=== PATIENT | male | born 1970 | race American Indian/Alaskan Native ===

== ENCOUNTER → 2024-09-25 | Outpatient (BNVA) | payer MEDICARE, MEDICAID, SELFPAY | END | disposition home or self-care (01) | PROVIDERS: PCP Internal Medicine; Referring Provider Internal Medicine; Visit Provider Urology | DX: N40.1 Benign prostatic hyperplasia with lower urinary tract symptoms (principal); N13.8 Other obstructive and reflux uropathy; Z80.42 Family history of malignant neoplasm of prostate; I10 Essential (primary) hypertension; E78.5 Hyperlipidemia, unspecified; I25.10 Atherosclerotic heart disease of native coronary artery without angina pectoris; E66.9 Obesity, unspecified; Z68.41 Body mass index [BMI] 40.0-44.9, adult | CPT/HCPCS: 81003; 99212; G0463 ==

== ENCOUNTER 2024-10-17 09:36 | Emergency (ER) | payer MEDICAID, SELFPAY ==
[2024-10-17 09:37] VITALS: BMI 40.3
[2024-10-17 10:42] VITALS: BP 132/75; PULSE 78; RESP 19; TEMP 36.8; O2SAT 96
--- NOTE | 2024-10-17 10:55 | XR_ITS ---
Examination: CT brain head without contrast. 2-D sagittal coronal reconstructions Date and time of exam:October 17, 2024 1148 hours INDICATIONS: Onset dizziness episodes beginning 2 days ago COMPARISON: September 15, 2020 CTDI: vol (mGy):55.5 DLP: (mGycm):1129 Technique: Multiple CT axial sections of the brain have been obtained, 5 mm slice thickness. Contrast has not been administered. 2-D sagittal, coronal reconstructions have been obtained Low dose protocols were performed. One or more of the following dose reduction techniques were used; automated exposure control, adjustment of the mA and/or KV according to patient size, use of iterative reconstruction technique. Findings: No significant ventricular enlargement. Intra-axial or extra-axial hemorrhage density is not seen. No mass effect or midline shift Basal cisterns are not remarkable. Fourth ventricle is midline. Cranial vault intact. Impression: Negative for acute hemorrhage, mass effect or midline shift If symptoms persist, consider brain MRI follow-up, stroke protocol
--- NOTE | 2024-10-17 10:55 | XR_ITS ---
Examination: PA chest single view TECHNIQUE: Upright PA chest single view Exam date and time: October 17, 2024 1059 hours INDICATIONS: Dizziness chest pain beginning 2 days ago. FINDINGS: Mild opacity at the right lower lung zone Normal heart size No pulmonary edema Lower cervical artificial discs IMPRESSION: Suspicious for early pneumonia in the right lower lung zones
--- NOTE | 2024-10-17 10:55 | PD.EDRME ---
Rapid Medical Screening Exam RME Arrival date/time: 10/17/24 09:36 This is a 53-year-old male who presents to the emergency department with complaints of acute dizziness shakiness for 2 days. History of hypertension, A-fib hypothyroidism. I have greeted and performed a focused initial assessment of this patient. Initial appropriate labs ordered at this time. A comprehensive ED assessment and evaluation of the patient and analysis of all test and completion of medical decision making process will be conducted by additional ED provider. Chief Complaint: Dizziness Time Seen by Provider: 10/17/24 09:49 Vital signs: Vital Signs Temperature 98.2 F 10/17/24 10:42 Pulse Rate 78 10/17/24 10:42 Respiratory Rate 19 10/17/24 10:42 Blood Pressure 132/75 H 10/17/24 10:42 Pulse Oximetry (%) 96 10/17/24 10:42 Oxygen Delivery Method Room Air 10/17/24 10:42
[2024-10-17 11:31] LABS: Basophils % (Auto) 0 % (0-2.5); Eosinophils # (Auto) 0.1 Thou/mm3 (0.0-0.5); Eosinophils % (Auto) 1 % (0-10); Hematocrit 44.2 % (41.0-53.0); Hemoglobin 15.4 g/dL (13.5-16.0); Immature Granulocytes % (Auto) 1 % (0-0); Immature Granulocytes Auto 0.04 Thou/mm3 (0.00-0.00); Lymphocytes # (Auto) 1.3 Thou/mm3 (1.0-4.8); Lymphocytes % (Auto) 18 % (10-50); Mean Corpuscular HGB Conc 34.8 g/dl (31.0-37.0); Mean Corpuscular Volume 92 fL (80-100); Monocytes # (Auto) 0.7 Thou/mm3 (0.0-0.8); Monocytes % (Auto) 10 % (0-12); Neutrophils # (Auto) 4.8 Thou/mm3 (1.8-7.7); Neutrophils % (Auto) 69 % (37-80); Nucleated Red Blood Cell % 0 /100 WBC (0); Platelet Count 274 Thou/mm3 (140-440); RDW Standard Deviation 42.4 fL (35.1-43.9); Red Blood Count 4.81 Miln/mm3 (4.50-5.90); White Blood Count 6.9 Thou/mm3 (3.8-10.6)
[2024-10-17 11:46] LABS: INR 0.9 (0.9-1.3); Partial Thromboplastin Time 26.7 Seconds (22.0-36.0); Prothrombin Time 10.3 Seconds (9.0-12.2)
[2024-10-17 11:54] LABS: Alanine Aminotransferase 89 U/L (10-49); Albumin, Serum 4.5 gm/dL (3.5-5.0); Albumin/Globulin Ratio 1.9 (1.2-2.2); Alkaline Phosphatase 92 U/L (46-116); Anion Gap 6 (7-16); Aspartate Amino Transferase 42 U/L (0-34); BUN/Creatinine Ratio 12 Ratio (12-20); Bilirubin,Total 0.5 mg/dL (0.3-1.2); Blood Urea Nitrogen 13 mg/dL (9-23); Calcium 9.2 mg/dL (8.3-10.6); Calcium (Corrected) 9.2 mg/dL (8.5-10.1); Carbon Dioxide 29.8 mMol/L (20.0-31.0); Chloride 100 mMol/L (98-107); Creatinine (Component) 1.1 mg/dL (0.6-1.3); Estimated Creatinine Clearance 89.8 mL/min (>60); Globulin 2.4 gm/dL (2.3-3.5); Glucose 109 mg/dL (74-106); Osmolality,Calculated 273 (275-295); Potassium 3.9 mMol/L (3.4-5.1); Sodium 136 mMol/L (136-145); Total Protein 6.9 gm/dL (5.7-8.2); Troponin I < 0.002 ng/mL (0.0-0.045); eGFR > 60 See Note
[2024-10-17 12:16] LABS: Collection Type, Urine Clean Catch
[2024-10-17 12:27] LABS: Amphetamine/Methamp Scrn,U Negative (Negative); Barbiturate Screen,Urine Negative (Negative); Benzodiazepines Screen,Urine Negative (Negative); Benzoylecgonine Screen, Ur Negative (Negative); Fentanyl Screen,Urine Negative (Negative); Opiate Screen,Urine Negative (Negative); THC Screen,Urine Negative (Negative)
[2024-10-17 12:36] LABS: Bacteria,Urine Rare; Bilirubin,Urine Negative (Negative); Blood,Urine Negative (Negative); Clarity,Urine Clear (Clear/Hazy); Color,Urine Lt-Yellow (Lt Yel-Yel); Glucose, Urine Negative (Negative); Ketones,Urine Negative (Negative); Leukocyte Esterase,Urine Negative (Negative); Nitrite,Urine Negative (Negative); PH,Urine 6.5 (5.0-7.0); Protein,Urine Negative (Neg - Trace); RBC,Urine < 1 /hpf (0-3); Specific Gravity,Urine 1.018 (1.001-1.035); Squamous Epithelial Cell,Urine 2 /hpf (0-5); Urobilinogen,Urine Negative mg/dL (0.0-1.0); WBC,Urine < 1 /hpf (0-5)
[2024-10-17 14:08] VITALS: BP 126/79; PULSE 66; RESP 20; TEMP 36.9; O2SAT 96
--- NOTE | 2024-10-17 14:16 | EDNOTE_ITS ---
<Statement entered by Samaria Marino MD - 10/21/24 07:24> As co-signing physician, I was present and available for consult prn. I concur with the plan and care as documented by the midlevel provider. ED Dizzyness RME/HPI General Chief Complaint: Dizziness Stated Complaint: LOW BLOOD PRESSURE, DIZZINESS Time Seen by Provider: 10/17/24 09:49 Arrival date/time: 10/17/24 09:36 RME / HPI RME / HPI Narrative: 53-year-old male patient with significant history of hypothyroidism, SVT in the past, BPH, hypertension, came in for evaluation regarding sudden onset of dizziness, shakiness, and low blood pressure. Onset of symptoms for the last 2 days, it comes and goes, severity moderate. Patient denies any cough denies any fever denies any chest pain denies any other complaints no medication was taken prior to arrival. Related Data Home Medications ?Medication ?Instructions ?Recorded ?Confirmed magnesium 500 mg tablet 500 mg PO QDAY 08/19/2009/10 aspirin 81 mg tablet,delayed 81 mg PO QDAY 09/25/24 release dutasteride 0.5 mg capsule 0.5 mg PO QDAY 09/25/24 levothyroxine 100 mcg capsule 100 mcg PO QDAY 09/25/24 09/25/24 metoprolol succinate 50 mg capsule 50 mg PO QDAY 09/2509/25/24 sprinkle, ext. release 24 hr tamsulosin 0.4 mg capsule 0.4 mg PO QHS 09/25/2409/25 Allergies Allergy/AdvReac Type Severity Reaction Status Date / Time No Known Allergies Allergy Verified 10/17/24 09:37 Review of Systems Review of Systems Narrative Review of Systems: Review of system reviewed and within normal limits except mentioned in HPI ED Exam Narrative Physical exam: VITAL SIGNS: Reviewed. GENERAL APPEARANCE: Alert and interactive, follows commands, no acute distress, HEAD AND FACE: Non-traumatic. ENT: PERRL, pink conjunctivitis, eyelid no trauma, Mucous membrane moist. NECK: Supple, nontender, no nuchal rigidity. CHEST: No tenderness, no crepitus, no paradoxical movement, no retractions. LUNGS: Clear, well ventilated, symmetric, no rales, no wheezing, no ronchi, no stridor, good breath sounds bilaterally. HEART: Regular rate, regular rhythm, no murmur, no gallops. ABDOMEN: Soft, positive bowel sounds, nondistended, no guarding, nontender, no rebound, no masses, RECTAL: Deferred. GENITAL: Deferred. NEUROLOGICAL: Gross motor function intact sensory function intact, Appropriate for age. MUSCULOSKELETAL: low back nontender, full range of motion. EXTREMITIES: Nontender, full range of motion. SKIN: Color pink, dry, no rash, no lacerations, no abrasions, no contusions. LYMPHATICS: Deferred. Course Quality Measures none Orders Category Date Time Status Bedside Blood Glucose NOW Care 10/17/24 10:55 Active Bedside COVID-19 Antigen Test NOW Care 10/17/24 11:37 Active Thread Singer STAT Care 10/17/24 10:55 Active EKG (ED ONLY) *Do not use* NOW Care 10/17/24 10:[address] head/brain wo con Stat Exams 10/17/24 10:55 Completed EKG (ED Only) Stat Exams 10/17/24 10:55 Ordered XR chest 1V portable Stat Exams 10/17/24 10:55 Completed CBC Stat Lab 10/17/24 11:15 Completed Comprehensive Metabolic Panel Stat Lab 10/17/24 11:15 Completed Drug Screen,Urine Stat Lab 10/17/24 11:55 Completed Partial Thromboplastin Time Stat Lab 10/17/24 11:15 Completed Prothrombin Time with INR Stat Lab 10/17/24 11:15 Completed Troponin I Stat Lab 10/17/24 11:15 Completed Urinalysis Stat Lab 10/17/24 11:55 Completed Vital Signs Vital signs: Vital Signs Temperature 98.2 F 10/17/24 10:42 Pulse Rate 78 10/17/24 10:42 Respiratory Rate 19 10/17/24 10:42 Blood Pressure 132/75 H 10/17/24 10:42 Pulse Oximetry (%) 96 10/17/24 10:42 Oxygen Delivery Method Room Air 10/17/24 10:42 Dizziness MDM Narrative MDM Narrative:: 53-year-old male patient with significant history of hypothyroidism, SVT in the past, BPH, hypertension, came in for evaluation regarding sudden onset of dizziness, shakiness, and low blood pressure. Onset of symptoms for the last 2 days, it comes and goes, severity moderate. Patient denies any cough denies any fever denies any chest pain denies any other complaints no medication was taken prior to arrival. Patient's cardiac workup today all came back normal. CBC also came back unremarkable. CMP also came back normal. Troponin is normal. Urinalysis no UTI. CT scan of the head came back normal chest x-ray showed early pneumonia, right lung base, possible. As read by radiologist. EKG showed normal sinus rhythm, ventricular rate of 76 bpm, no ST segment elevation depression noted. Patient data External records reviewed:: None Clinical information provided by:: patient Social determinants that could affect healthcare access:: none Patient has the following chronic illnesses:: Hypothyroidism, hypertension, history of SVT in the past How is presenting disease/condition affected by chronic disease/condition?: caused by Evaluation data The following diagnostics were reviewed and interpreted by me:: lab results, radiology exam(s) and EKG tracing(s) Lab and/or radiology exams considered but not ordered:: None Interpretation Summary: See results MDM Medications / Prescriptions Medications or Prescriptions considered but not ordered:: None Medication administrations:: None Consultations Consultation(s) initiated? (list below): No Diagnosis Dizziness Differential Diagnosis: other (Dizziness, shakiness, dehydration anxiety) Most likely diagnosis given after review of the tests above:: Dizziness, shakiness Admission Indicated Admission indicated?: not indicated Admission Request Was there a request for admission?: No Disposition Plan Disposition Plan: Discharge Discharge Attestation Discharge Attestation: The patient and all family members were given an opportunity to ask questions and understood the discharge instructions. Discharge instructions specifically effects, indications for sooner follow up or return to the emergency department, and the expected course of current diagnosis. Patient condition: Stable Discharge Plan Plan Patient Disposition: HOME (Self Care) Disposition Comment: Stable Prescriptions/Referrals Prescriptions/Med Rec: No Action levothyroxine 100 mcg capsule 100 mcg PO QDAY metoprolol succinate 50 mg capsule,sprinkle,ER 24hr 50 mg PO QDAY tamsulosin 0.4 mg capsule 0.4 mg PO QHS dutasteride 0.5 mg capsule 0.5 mg PO QDAY aspirin 81 mg tablet,delayed release (DR/EC) 81 mg PO QDAY magnesium 500 mg Tablet 500 mg PO QDAY Referrals: Pio Ibrahim DO [Primary Care Provider] - In 1 week Problem List Clinical Impression: Shakiness, Dizziness Patient/Caregiver Discharge Instructions Discharge Activity: activity as tolerated Education Materials: ED Dizziness, Uncertain Cause Additional Instructions: Thank you for the opportunity for serving you today. You are stable for discharged . You are advised to: Follow-up with your PCP in 1 to 2 days Return to ED for worsening of symptoms Increase oral fluids Print Language: Sami Stand Alone Forms: Kim Award Info., Patient Portal Info Letter PA/JOSHUA Supervising Physician PA/MERCHANDISER SEASONAL Supervising Physician: MD Jamila
== END 2024-10-17 14:42 | disposition home or self-care (01) ==
PROVIDERS: Nurse Practitioner Primary Care; Emergency Provider Emergency Medicine; PCP Family Medicine
DX: R42 Dizziness and giddiness (principal); R03.1 Nonspecific low blood-pressure reading; I10 Essential (primary) hypertension; E03.9 Hypothyroidism, unspecified; Z86.79 Personal history of other diseases of the circulatory system
CPT/HCPCS: 36415; 70450; 71045; 80053; 80307; 81001; 84484; 85025; 85610; 85730; 87811; 93005; 99284